=== PATIENT | male | born 1990 | race Hispanic/Latino ===

== ENCOUNTER 2016-03-01 14:14 | Emergency (ER) | payer OTHER ==
[~2016-03-01] VITALS: Ht 177.8 cm; Wt 113.4 kg
[2016-03-01 14:18] VITALS: BP 148/74
--- NOTE | 2016-03-01 15:05 | ED THROAT/DENTAL COMPLAINT ---
History of Present Illness General Chief Complaint: Sore Throat, Dental Pain Stated Complaint: SORE THROAT Source: patient, old records Exam Limitations: no limitations Vital Signs & Intake/Output Vital Signs & Intake/Output Vital Signs Date Time Temp Pulse Resp B/P Pulse O2 O2 Flow FiO2 Ox Delivery Rate 03/01 1418 98.7 108 20 148/74 99 Room Air Allergies Coded Allergies: No Known Allergies (05/07/15) Reconcile Medications Amoxicillin/Potassium Clav (Augmentin 875-125 Tablet) 875 MG-125 MG TABLET 1 TAB PO BID strep Methylprednisolone. (Medrol) 4 MG TAB.DS.PK 1 DP PO AD strep 6 on day 1 then reduce by one tablet daily until gone Triage Note: 25 Y/O MALE C/O SORE THROAT SINCE YESTERDAY; HAS BEEN TAKING OTC MEDS WITHOUT RELIEF. QUICK STREP SENT. Triage Nurses Notes Reviewed? yes Onset: Abrupt Duration: day(s): (1), constant Timing: recent history Injury Environment: home Severity: moderate Severity Numbers: 5 No Modifying Factors: none Associated Symptoms: denies HPI: 25-year-old male presents to emergency room complaining of a sore throat subjective fever since yesterday taking [id number] medications without improvement no recent dental work no chest pain or shortness of breath no cough congestion or rhinorrhea. No sick contacts with similar symptoms. Symptoms are worse with attempted swallowing no change in his voice there are no other modifying factors or associated symptoms otherwise. (MANUEL MARTINEZ) Past History Travel History Traveled to [place] past 21 day No Medical History Any Pertinent Medical History? none Neurological: NONE EENT: NONE Cardiovascular: NONE Respiratory: NONE Gastrointestinal: NONE Hepatic: NONE Renal: NONE Musculoskeletal: NONE Psychiatric: NONE Endocrine: NONE Blood Disorders: NONE Cancer(s): NONE ENROLLMENT NURSE/Reproductive: NONE Surgical History Surgical History: non-contributory Psychosocial History What is your primary language [place] Tobacco Use: Never used Family History Hx Contributory? No (MANUEL MARTINEZ) Review of Systems Review of Systems Constitutional: Reports: see HPI. All Other Systems: Reviewed and Negative Comments Review of systems: See HPI, All other systems negative. Constitutional, no chills no fever, no malaise HEENT: No visual changes no sore throat no congestion Cardiovascular: No chest pain , no palpitation Skin, no rashes, no change in skin Respiratory: No dyspnea no cough no sputum GI: No nausea no vomiting, no diarrhea, : No dysuria Muscle skeletal: No joint pain, no back pain, no neck pain, Neurologic: No numbness no no headache Psych: No stress Heme/endocrine: No bruising no bleeding Immunology: No lymphadenopathy (MANUEL MARTINEZ) Physical Exam Physical Exam General Appearance: well developed/nourished, no apparent distress, alert, awake , comfortable Mouth/Throat: normal mouth inspection, tonsillar exudate Comments: Well-developed well-nourished patient in no apparent distress. Head/Face: Atraumatic, no maxillary/frontal sinus tenderness, no facial swelling Eyes: PERRL, EOMI, no conjunctival injection Ear:External auditory canals clear, no erythema Nose: atraumatic.Normal inspection Throat: Moist mucous membranes.pharynx is erythematous, positive tonsillar exudate no trismus no stridor/drooling or assymetry. No swelling or edema. Neck: Supple, no lymphadenopathy, FROM Back: FROM, Nontender Cardiovascular: Regular rate and rhythms no murmurs rubs or gallops, Respiratory: No respiratory distress. Patient speaking in full complete sentences. Breath sounds clear to auscultation bilaterally: NO W/R/R Extremities: full range of motion Neuro: Alert and oriented x3 Skin: Warm & dry;No appreciable rash on exposed skin Psych: Mood affect normal, normal memory normal judgment. Core Measures ACS in differential dx? No Severe Sepsis Present: No Septic Shock Present: No (MANUEL MARTINEZ) Progress Differential Diagnosis: epiglottitis, Ludwigs angina, odontogenic abscess, mando- tonsillar abscess, stomatitis/gingivitis, strep pharyngitis Plan of Care: Orders Procedure Date/time Status THROAT CULTURE W/QUICK STREP 03/01 1416 Complete Discussed the patient and his throat Results prescription for Augmentin Medrol Dosepak provided cleared for discharge (MANUEL MARTINEZ) Departure Departure Time of Disposition: 1513 Disposition: HOME OR SELF CARE Condition: Stable Clinical Impression Primary Impression: Pharyngitis Referrals: UNKNOWN (PCP/Family) Additional Instructions: Augmentin as directed Medrol Dosepak as discussed these prescriptions were sent to the pharmacy. Tylenol Motrin as needed for pain to plenty fluids Departure Forms: Customer Survey General Discharge Information Prescriptions: Current Visit Scripts Amoxicillin/Potassium Clav (Augmentin 875-125 Tablet) 1 TAB PO BID #14 TAB Methylprednisolone. (Medrol) 1 DP PO AD #1 DP 6 on day 1 then reduce by one tablet daily until gone (MANUEL MARTINEZ) PA/TOE PUNCHER Co-Sign Statement Statement: ED Attending supervision documentation- [] I saw and evaluated the patient. I have also reviewed all the pertinent lab results and diagnostic results. I agree with the findings and the plan of care as documented in the PA's/TOE PUNCHER's documentation. [x] I have reviewed the ED Record and agree with the PA's/TOE PUNCHER's documentation. [] Additions or exceptions (if any) to the PAs/TOE PUNCHER's note and plan are summarized below: [] (LAVON MONTIEL DO)
[2016-03-01] MEDS ORDERED: AUGMENTIN 875-1 EACH PO (15:15)
[2016-03-01] MEDS ORDERED: MEDROL4 M2 PO (15:15)
== END 2016-03-01 15:30 ==
LOC: ERH 14:14
DX: J02.9 Acute pharyngitis, unspecified (principal)